=== PATIENT | male | born 1960 | race Two or more races ===

== ENCOUNTER 2021-04-24 15:19 | Emergency (ER) | payer OTHER ==
[~2021-04-24] VITALS: Ht 162.6 cm; Wt 66.2 kg
[~2021-04-24 15:19] MED LIST: ATENOLOL50 MG; METFORMIN HCL500 MG; MOTRIN800 MG PO; OSEL75CA PO; RESTORIL30 M1; RESTORIL30 MG; VASOTEC2.5 MG
[2021-04-24] MEDS ORDERED: TAMS0.4C (17:09)
[2021-04-24] MEDS ORDERED: PHENAZOPYRIDIN200 MG (17:09)
[2021-04-24] MEDS ORDERED: LEVOFLOXACIN 500 MG (17:10)
== END 2021-04-24 23:22 | disposition home or self-care (01) ==
LOC: ER 15:19
DX: R10.30 Lower abdominal pain, unspecified (principal); R30.0 Dysuria; R42 Dizziness and giddiness; R51.9 Headache, unspecified

== ENCOUNTER 2022-04-08 07:34 | Outpatient (CLI) | payer OTHER ==
[~2022-04-08 07:34] MED LIST changes: +LEVOFLOXACIN 500 MG; +PHENAZOPYRIDIN200 MG; +TAMS0.4C
== END 2022-04-08 07:36 | disposition home or self-care (01) ==
LOC: NUCLEAR 07:34
PROVIDERS: ATTEND Urology
DX: C61 Malignant neoplasm of prostate (principal)

== ENCOUNTER → 2022-08-29 | Emergency (ER) | payer OTHER ==
[~2022-08-29] VITALS: Ht 162.6 cm; Wt 68.5 kg
== END | disposition home or self-care (01) ==
LOC: ER 10:24
DX: N39.0 Urinary tract infection, site not specified (principal); B96.89 Other specified bacterial agents as the cause of diseases classified elsewhere; E11.9 Type 2 diabetes mellitus without complications; Z79.84 Long term (current) use of oral hypoglycemic drugs; I10 Essential (primary) hypertension

== ENCOUNTER → 2023-06-30 | Emergency (ER) | payer OTHER ==
[~2023-06-30] VITALS: Ht 162.6 cm; Wt 69.4 kg
[~2023-06-30] MED LIST changes: +CLONAZEPAM0.5 MG PO; +LIPITOR20 MG PO; +NEURONTIN600 M1 PO; +ZOLOFT25 MG PO
[2023-06-30 12:04] LABS: URINE BACTERIA 132.2 uL (0.0-1933); URINE RBC 205.9 uL (0.0-20.8); URINE WBC 535.3 uL (0.0-23.2)
[2023-06-30 12:06] LABS: HEMATOCRIT 38.6 % (39.0-48.0); HEMOGLOBIN 13.3 g/dL (13-16.00); MEAN CELL VOLUME 79.8 fL (80.0-100.00); MEAN CORPUSCULAR HEMOGLOBIN 27.5 pg (27.00-32.0); MEAN CORPUSCULAR HGB CONC 34.5 g/dl (32.0-36.0); PLATELET COUNT 238 K/uL (150-450); RED BLOOD COUNT 4.84 M/uL (4.00-6.00); RED CELL DISTRIBUTION WIDTH 14.4 % (11.5-14.5)
[2023-06-30 12:10] LABS: PH,URINE 5.5 (5.0-8.0); URINE APPEARANCE Clear; URINE BILIRRUBIN Negative (NEGATIVE); URINE BLOOD Large; URINE COLOR Yellow; URINE LEUKOCYTE Trace; URINE NITRATE Negative; URINE UROBILINOGEN 0.2 E.U./dl
[2023-06-30 12:12] LABS: URINE EPITHELIAL CELLS 1.3 uL (0.0-38.8); URINE GLUCOSE >=1000 MG/DL (NEGATIVE); URINE PROTEIN 300 (NEGATIVE)
[2023-06-30 12:27] LABS: CREATININE SERUM 0.88 mg/dL (0.70-1.30); GFR 88.04; POTASSIUM 3.97 mEq/L (3.5-5.1)
== END | disposition home or self-care (01) ==
LOC: ER 11:15
PROVIDERS: Emergency Medicine
DX: R33.9 Retention of urine, unspecified (principal); E11.9 Type 2 diabetes mellitus without complications; Z79.84 Long term (current) use of oral hypoglycemic drugs; I10 Essential (primary) hypertension; D07.5 Carcinoma in situ of prostate; N39.0 Urinary tract infection, site not specified

== ENCOUNTER 2025-07-23 07:00 | Emergency (ER) | payer OTHER ==
[~2025-07-23] VITALS: Ht 162.6 cm; Wt 68.0 kg
[2025-07-23] MEDS ORDERED: DEXAMETHASONE SODIUM PHOSPHATE 4 MG/ML VIAL IM STA (09:25)
[2025-07-23] MEDS ORDERED: ORPHENADRINE CITRATE 30 MG/ML AMPUL IM STA (09:25)
[2025-07-23] MEDS ORDERED: KETOROLAC TROMETHAMINE 30 MG VIAL IM STA (09:25)
[2025-07-23] MEDS ORDERED: KETOROLAC TROMETHAMINE 30 MG VIAL ONE (09:35)
[2025-07-23] MEDS ORDERED: ORPHENADRINE CITRATE 30 MG/ML AMPUL ONE (09:36)
[2025-07-23] MEDS ORDERED: DEXAMETHASONE SODIUM PHOSPHATE 4 MG/ML VIAL ONE (09:36)
== END 2025-07-23 10:07 | disposition home or self-care (01) ==
LOC: ER 07:00
DX: M79.601 Pain in right arm (principal); M54.2 Cervicalgia
CPT/HCPCS: 72040; 96372; 99283; J0696; J1100; J1885